=== PATIENT | female | born 1970 | race Caucasian/White ===

== ENCOUNTER → 2016-11-09 | Outpatient (CLI) | payer OTHER ==
--- NOTE | 2016-11-09 16:53 | MAMMOGRAPHY REPORT ---
BILATERAL DIGITAL SCREENING MAMMOGRAM TOMOSYNTHESIS WITH CAD: 11/09/2016 TECHNIQUE: Breast tomosynthesis in addition to standard 2D mammography was performed. Current study was also evaluated with a Computer Aided Detection (CAD) system. COMPARISON: Comparison is made to exams dated: 06/07/2013 mammogram, 06/05/2012 mammogram, 02/11/2010 mammogram, 05/10/2011 mammogram, and 05/05/2011 mammogram - [facility]. BREAST COMPOSITION: There are scattered areas of fibroglandular density in both breasts. FINDINGS: There is an oval circumscribed 6 mm mass seen within the left central breast posteriorly, which was not clearly evident on prior cc views. Recommend ultrasound and possible additional spot compression views for further evaluation, although this may represent a cyst or intramammary lymph node. The remainder of both breasts are stable compared to prior exams, without suspicious masses, calcifi cations, or areas of architectural distortion noted. IMPRESSION: ACR BI-RADS CATEGORY 0: INCOMPLETE EVALUATION: NEED ADDITIONAL IMAGING EVALUATION Left breast mass, for which additional imaging evaluation is recommended. The patient will be qureshi d to schedule an appointment. Approximately 10% of breast cancers are not detected with mammography. A negative mammographic repor t should not delay biopsy if a clinically suggestive mass is present. Dixie Sethi M.D. /:11/09/2016 16:13:18 Batch Unloader: Liss DOMÍNGUEZ)(Christin), [facility] letter sent: Addl Imaging 0 BI-RADS Code: ACR BI-RADS Category 0: Incomplete Evaluation: Need Additional Imaging Evaluation
== END | disposition home or self-care (01) ==
LOC: C.MAMM 11:21
PROVIDERS: ATTEND Obstetrics & Gynecology
DX: Z12.31 Encounter for screening mammogram for malignant neoplasm of breast (principal); N63 Unspecified lump in breast

== ENCOUNTER → 2016-11-21 | Outpatient (CLI) | payer OTHER ==
--- NOTE | 2016-11-21 14:36 | MAMMOGRAPHY REPORT ---
ULTRASOUND OF LEFT BREAST: 11/21/2016 CLINICAL HISTORY: 45-year-old woman called back from screening mammography for a newly visualized lo bulated circumscribed 4 x 6 mm mass in the far posterior slightly inferior left breast. COMPARISON: Comparison is made to exams dated: 11/09/2016 mammogram, 06/05/2012 mammogram, 06/07/2013 mammogram, 05/10/2011 ultrasound, and 02/11/2010 mammogram - [facility]. FINDINGS: Real-time high-resolution sonographic evaluation was performed in the 12:00, 6:00 and sli ghtly lateral left breast to evaluate for the newly visualized mammographic mass. In the 4:00 axis, 1 cm from the nipple, there is an elongated parallel tubular versus ovoid nearly anechoic mass with horizontally oriented linear internal echogenic structure. It measures approximately 3.5 x 4.4 x 1 .7 mm and is 2 cm deep within the breast, near the pectoralis muscle. This is thought to correlate with the mammographic mass. For confirmation of mammographicsonographic correlation, a skin BB was placed overlying this sonographic mass and repeat left CC and MLO tomosynthesis images were perform ed. There is alignment of the BB marker with the mammographic mass in question. Incidentally seen in the left 3:00 periareolar breast is an anechoic circumscribed cyst measuring 2.7 x 3.7 x 3.7 mm. IMPRESSION: ACR BI-RADS CATEGORY 2: BENIGN The newly visualized lobulated 4 x 6 mm mass in the posterior left breast seen mammographically steve elates with a benign cyst in the 4:00 left breast on ultrasound. Incidentally noted is another anec hoic benign simple cyst in the 3:00 periareolar left breast on ultrasound. There is no mammographic or targeted sonographic evidence of malignancy. Return to annual mammogram screening schedule is re commended. These results and recommendations were discussed with the patient at the time of the leandro Zarate M.D. ay/:11/21/2016 13:36:20 Inpatient Pharmacist: Dr. Brittany Zarate, [facility] letter sent: Normal 1/2 BI-RADS Code: ACR BI-RADS Category 2: Benign
== END | disposition home or self-care (01) ==
LOC: C.MAMM 10:21
PROVIDERS: ATTEND Obstetrics & Gynecology
DX: N63 Unspecified lump in breast (principal)

== ENCOUNTER → 2018-01-12 | Outpatient (CLI) | payer OTHER ==
[2018-01-12 10:31] LABS: BASO % 0.9 %; BASO ABS # 0.04 K/uL (0-0.2); EOS % 2.1 %; HEMATOCRIT 41.9 % (37-47); HEMOGLOBIN 14.1 g/dL (12.0-16.0); IG# 0.01 K/uL (0.00-0.02); LYMPH ABS # 1.73 K/uL (1.2-3.4); MEAN CELL VOLUME 91.3 fL (80-100); MEAN CORPUSCULAR HEMOGLOBIN 30.7 pg (25-34); MEAN CORPUSCULAR HGB CONC 33.7 g/dl (32-36); MEAN PLATELET VOLUME 10.6 fL (7.4-10.4); MONO % 7.3 %; MONO ABS # 0.34 K/uL (0.11-0.59); NEUT % 52.5 %; NEUT ABS # 2.45 K/uL (1.4-6.5); PLATELET COUNT 217 K/uL (130-400); RED CELL DISTRIBUTION WIDTH CV 12.1 % (11.5-14.5); RED CELL DISTRIBUTION WIDTH SD 40.5 fL (36.4-46.3); WHITE BLOOD COUNT 4.67 K/uL (4.8-10.8)
== END | disposition home or self-care (01) ==
LOC: C.LABBC 08:11
PROVIDERS: ATTEND Physician Assistant Medical
DX: Z00.00 Encounter for general adult medical examination without abnormal findings (principal); K62.5 Hemorrhage of anus and rectum

== ENCOUNTER → 2018-02-06 | Outpatient (CLI) | payer OTHER ==
--- NOTE | 2018-02-07 15:23 | MAMMOGRAPHY REPORT ---
BILATERAL DIGITAL SCREENING MAMMOGRAM TOMOSYNTHESIS WITH CAD: 02/06/2018 CLINICAL HISTORY: Routine screening. Patient has no complaints. TECHNIQUE: Breast tomosynthesis in addition to standard 2D mammography was performed. Current study was also evaluated with a Computer Aided Detection (CAD) system. COMPARISON: Comparison is made to exams dated: 11/09/2016 mammogram, 06/07/2013 mammogram, 06/05/2012 m ammogram, 05/05/2011 mammogram, and 02/11/2010 mammogram - [facility]. BREAST COMPOSITION: There are scattered areas of fibroglandular density in both breasts. FINDINGS: There are multiple bilateral circumscribed subcentimeter round and oval masses scattered in the breasts, which is a typically benign mammographic pattern most likely representing cysts. An ov al circumscribed 5 mm mass in the slightly inferior left breast on the MLO view, along the posterior nipple line on the CC view, is unchanged in size since last years exam and previously documented to r epresent a cyst on ultrasound. No suspicious spiculated or irregular mass, architectural distortion or cluster of microcalcifications is seen. IMPRESSION: ACR BI-RADS CATEGORY 1: NEGATIVE There is no mammographic evidence of malignancy. A 1 year screening mammogram is recommended. The pa tient will receive written notification of the results. Approximately 10% of breast cancers are not detected with mammography. A negative mammographic report should not delay biopsy if a clinically suggestive mass is present. Brittany Zarate M.D. ay/:02/06/2018 17:08:53 Lead Data Entry Operator: Sury DINERO(R)(M), [facility] letter sent: Normal 1/2 BI-RADS Code: ACR BI-RADS Category 1: Negative
== END | disposition home or self-care (01) ==
LOC: C.MAMM 12:29
PROVIDERS: ATTEND Internal Medicine
DX: Z12.31 Encounter for screening mammogram for malignant neoplasm of breast (principal)